=== PATIENT | female | born 1965 ===

== ENCOUNTER 2017-02-07 06:05 | Emergency (ER) | payer BC ==
[2017-02-07 06:16] VITALS: BP 119/69; PULSE 81; RESP 16; TEMP 99.4; O2SAT 100
[2017-02-07] MEDS: Sodium Chloride 0.9% 1,000 ML IV STA (06:33)
--- NOTE | 2017-02-07 06:36 | ED PDOC ---
HPI: Back Time Seen by Provider: 02/07/17 06:18 Chief Complaint (Nursing): Abdominal Pain Chief Complaint (Provider): left sided flank pain History Per: Patient History/Exam Limitations: no limitations Onset/Duration Of Symptoms: Hrs Current Symptoms Are (Timing): Still Present Additional Complaint(s): 51yo female presents to the ED with c/o acute onset left sided flank pain x 3 hours. Patient has never had this pain before. Associated with nausea. Denies vomiting, fever, urinary symptoms. Past Medical History Reviewed: Historical Data, Nursing Documentation, Vital Signs Vital Signs: Last Vital Signs Temp 99.4 F 02/07/17 06:14 Pulse 81 02/07/17 06:14 Resp 16 02/07/17 06:14 BP 119/69 02/07/17 06:14 Pulse Ox 100 02/07/17 06:14 - Medical History PMH: No Chronic Diseases - Surgical History Surgical History: No Surg Hx - Family History Family History: States: No Known Family Hx - Allergies Allergies/Adverse Reactions: Allergies Allergy/AdvReac Type Severity Reaction Status Date / Time No Known Allergies Allergy Unverified 10/09/13 16:39 Review of Systems ROS Statement: Except As Marked, All Systems Reviewed And Found Negative Constitutional: Negative for: Fever Gastrointestinal: Positive for: Nausea. Negative for: Vomiting Genitourinary Female: Negative for: Dysuria, Frequency, Incontinence, Hematuria Musculoskeletal: Positive for: Back Pain (left flank ) Physical Exam - Reviewed Nursing Documentation Reviewed: Yes Vital Signs Reviewed: Yes - Physical Exam Appears: Positive for: Well, No Acute Distress, Uncomfortable Head Exam: Positive for: ATRAUMATIC, NORMAL INSPECTION, NORMOCEPHALIC Skin: Positive for: Normal Color, Warm, Dry Eye Exam: Positive for: Normal appearance, EOMI, PERRL ENT: Positive for: Normal ENT Inspection Neck: Positive for: Normal, Painless ROM, Supple Cardiovascular/Chest: Positive for: Regular Rate, Rhythm. Negative for: Murmur , Tachycardia Respiratory: Positive for: Normal Breath Sounds. Negative for: Wheezing, Respiratory Distress Gastrointestinal/Abdominal: Positive for: Normal Exam, Bowel Sounds, Soft. Negative for: Tenderness Back: Positive for: L CVA Tenderness. Negative for: R CVA Tenderness Extremity: Positive for: Normal ROM. Negative for: Deformity, Swelling Neurologic/Psych: Positive for: Alert, Oriented - Laboratory Results Result Diagrams: 04/12/17 06:30 02/07/17 06:30 - ECG O2 Sat by Pulse Oximetry: 100 Pulse Ox Interpretation: Normal (RA) Medical Decision Making Medical Decision Makin: Impression: kidney stone Plan: CT A/P Labs IVF, Toradol 30mg IVP reassess Patient s/o to Dr. Aquino at [address], labs, re-eval. Scribe Attestation: Documented by Juliocesar Zacarias acting as a scribe for Efe Schulte MD. Provider Scribe Attestation: All medical record entries made by the Scribe were at my direction and personally dictated by me. I have reviewed the chart and agree that the record accurately reflects my personal performance of the history, physical exam, medical decision making, and the department course for this patient. I have also personally directed, reviewed, and agree with the discharge instructions and disposition. Disposition - Clinical Impression Clinical Impression: Abdominal pain - Patient ED Disposition Is Patient to be Admitted: Transfer of Care - Disposition Disposition: Transfer of Care Disposition Time: 07:00 Condition: STABLE Patient Signed Over To: Cole Aquino Handoff Comments: pending CT, labs, re-eval
[2017-02-07 06:41] LABS: BASO # 0.1 K/uL (0.0-0.2); BASO % 1.2 % (0.0-2.0); EOS # 0.1 K/uL (0.0-0.7); EOS % 1.1 % (0.0-4.0); HEMATOCRIT 42.8 % (34.0-47.0); LYMPH # 4.3 K/uL (1.0-4.3); LYMPH % 36.2 % (20.0-40.0); MEAN CELL VOLUME 84.7 fl (81.0-99.0); MEAN CORPUSCULAR HEMOGLOBIN 27.1 pg (27.0-31.0); MEAN PLATELET VOLUME 9.1 fl (7.2-11.7); MONO # 1.1 K/uL (0.0-0.8); MONO % 9.2 % (0.0-10.0); NEUT # 6.2 K/uL (1.8-7.0); NEUT % 52.3 % (50.0-75.0); NRBC % 0.1 % (0.0-0.0); WHITE BLOOD COUNT 11.9 K/uL (4.8-10.8)
[2017-02-07 06:54] LABS: ALB/GLOB RATIO 1.1 (1.0-2.1); ALKALINE PHOSPHATASE 103 U/L (38-126); ALT/SGPT 41 U/L (9-52); AST/SGOT 31 U/L (14-36); BILIRUBIN,TOTAL 0.6 mg/dl (0.2-1.3); BLOOD UREA NITROGEN 15 mg/dl (7-17); CALCIUM 10.7 mg/dL (8.4-10.2); CARBON DIOXIDE 23 mmol/L (22-30); CHLORIDE 105 mmol/L (98-107); GFR AFRICAN-AMERICAN > 60; GLUCOSE,RANDOM 143 mg/dL (65-105); POTASSIUM 3.9 MMOL/L (3.6-5.0); SODIUM 144 mmol/l (132-148); TOTAL PROTEIN 7.8 G/DL (6.3-8.2)
--- NOTE | 2017-02-07 07:14 | ED PDOC ---
- Laboratory Results Result Diagrams: 02/07/17 06:30 02/07/17 06:30 - ECG O2 Sat by Pulse Oximetry: 100 - Progress Re-evaluation Time: 08:49 Condition: Re-examined, Improved Medical Decision Making Medical Decision Making: Time: 0700 Patient signed out by Dr. Schulte pending CT and labs Time: 0850 CT abdomen results reveiwed PROCEDURE: CT Abdomen and Pelvis without intravenous contrast HISTORY: L sided flank pain COMPARISON: None. TECHNIQUE: Technique. Contrast Dose: Radiation dose: Total exam DLP = 1048 mGy-cm. This CT exam was performed using one or more of the following dose reduction techniques: Automated exposure control, adjustment of the mA and/or kV according to patient size, and/or use of iterative reconstruction technique. FINDINGS: LOWER THORAX: Unremarkable. LIVER: Unremarkable. No gross lesion or ductal dilatation. GALLBLADDER AND BILE DUCTS: Unremarkable. PANCREAS: Unremarkable. No gross lesion or ductal dilatation. SPLEEN: Unremarkable. ADRENALS: Unremarkable. No mass. KIDNEYS AND URETERS: A 1 mm nonobstructing central left renal calculus is noted. No hydronephrosis. No gross mass on this non enhanced study is seen. 1 mm calculus near the left ureterovesical junction - likely just having passed into the bladder is noted. Portions of the left mid ureter more proximally appear segmentally top-normal in caliber. No diffuse left ureteral dilatation suggested. Immediately above this left ureteral vesicle junction no immediate dilated left ureter seen. VASCULATURE: Unremarkable. No aortic aneurysm. Bilateral hemipelvic phleboliths BOWEL: Unremarkable. No obstruction. No gross mural thickening. APPENDIX: Unremarkable. Normal appendix. PERITONEUM: Unremarkable. No free fluid. No free air. LYMPH NODES: Unremarkable. No enlarged lymph nodes. BLADDER: Left-sided 1 mm calculus likely recently passed into left bladder near left ureteral vesicle junction as detailed above REPRODUCTIVE: Unremarkable. BONES: No acute fracture. OTHER FINDINGS: None. IMPRESSION: 1 mm (or smaller) left-sided calculus likely recently passed into the bladder now near the left ureterovesical junction. No immediate proximal left ureteral dilatation suggested. Nonobstructing 1 mm left central renal calculus. No left hydronephrosis Scribe Attestation: Documented by Rosa Singh acting as a scribe for Cole Aquino MD MD Scribe Attestation: All medical record entries made by the Scribe were at my direction and personally dictated by me. I have reviewed the chart and agree that the record accurately reflects my personal performance of the history, physical exam, medical decision making, and the department course for this patient. I have also personally directed, reviewed, and agree with the discharge instructions and disposition. Disposition - Clinical Impression Clinical Impression: Abdominal pain, Ureteral calculus, right - POA Present On Arrival: None - Disposition Referrals: Mele Wilson MD [Staff Provider] - Disposition: Routine/Home Disposition Time: 08:51 Condition: GOOD Additional Instructions: Follow up with your PCP in 2-3 days. Prescriptions: Ciprofloxacin HCl [Cipro] 500 mg PO BID #14 tablet Instructions: Kidney Stones (ED)
[2017-02-07 07:39] LABS: RBC URINE 1 /hpf (0-3); URINE BILIRUBIN NEGATIVE (NEGATIVE); URINE BLOOD NEGATIVE (NEGATIVE); URINE COLOR YELLOW (YELLOW); URINE GLUCOSE (UA) NEG (Normal); URINE KETONE NEGATIVE (NEGATIVE); URINE LEUKOCYTE ESTERASE TRACE Leu/uL (Negative); URINE PROTEIN NEGATIVE (NEGATIVE); URINE UROBILINOGEN 0.2-1.0 mg/dL (0.2-1.0); WBC CLUMPS MANY /hpf; WBC URINE 12 /hpf (0-5)
--- NOTE | 2017-02-07 08:35 | CT ---
PROCEDURE: CT Abdomen and Pelvis without intravenous contrast HISTORY: L sided flank pain COMPARISON: None. TECHNIQUE: Technique. Contrast Dose: Radiation dose: Total exam DLP = 1048 mGy-cm. This CT exam was performed using one or more of the following dose reduction techniques: Automated exposure control, adjustment of the mA and/or kV according to patient size, and/or use of iterative reconstruction technique. FINDINGS: LOWER THORAX: Unremarkable. LIVER: Unremarkable. No gross lesion or ductal dilatation. GALLBLADDER AND BILE DUCTS: Unremarkable. PANCREAS: Unremarkable. No gross lesion or ductal dilatation. SPLEEN: Unremarkable. ADRENALS: Unremarkable. No mass. KIDNEYS AND URETERS: A 1 mm nonobstructing central left renal calculus is noted. No hydronephrosis. No gross mass on this non enhanced study is seen. 1 mm calculus near the left ureterovesical junction - likely just having passed into the bladder is noted. Portions of the left mid ureter more proximally appear segmentally top-normal in caliber. No diffuse left ureteral dilatation suggested. Immediately above this left ureteral vesicle junction no immediate dilated left ureter seen. VASCULATURE: Unremarkable. No aortic aneurysm. Bilateral hemipelvic phleboliths BOWEL: Unremarkable. No obstruction. No gross mural thickening. APPENDIX: Unremarkable. Normal appendix. PERITONEUM: Unremarkable. No free fluid. No free air. LYMPH NODES: Unremarkable. No enlarged lymph nodes. BLADDER: Left-sided 1 mm calculus likely recently passed into left bladder near left ureteral vesicle junction as detailed above REPRODUCTIVE: Unremarkable. BONES: No acute fracture. OTHER FINDINGS: None. IMPRESSION: 1 mm (or smaller) left-sided calculus likely recently passed into the bladder now near the left ureterovesical junction. No immediate proximal left ureteral dilatation suggested. Nonobstructing 1 mm left central renal calculus. No left hydronephrosis
== END 2017-02-07 09:05 | disposition home or self-care (01) ==
LOC: H.ER 06:05
DX: N20.1 Calculus of ureter (principal); R10.9 Unspecified abdominal pain; R11.0 Nausea; M54.9 Dorsalgia, unspecified
CPT/HCPCS: 74176; 80053; 81003; 81025; 85025; 96374; 99283; J1885; J7040

== ENCOUNTER 2018-01-17 13:22 | Emergency (ER) | payer BC ==
[2018-01-17 13:30] VITALS: O2SAT 98
[2018-01-17] MEDS ORDERED: Morphine 4 MG/ML VIAL IVP ONE (13:40)
[2018-01-17] MEDS ORDERED: Morphine 4 MG/ML VIAL ONE (13:50)
--- NOTE | 2018-01-17 14:09 | ED PDOC ---
HPI: Back Time Seen by Provider: 01/17/18 13:32 Chief Complaint (Nursing): Back Pain Chief Complaint (Provider): Left Flank Pain History Per: Patient Onset/Duration Of Symptoms: Hrs (2-3), Intermittent Episodes, Sudden Onset Severity: Moderate Previous Symptoms: None, Other (pt has a PMHx that includes renal stones; most recent episode was 8 months prior) Past Medical History Vital Signs: Last Vital Signs Temp 97.8 F 01/17/18 13:27 Pulse 80 01/17/18 13:27 Resp 18 01/17/18 13:27 BP 116/79 01/17/18 13:27 Pulse Ox 98 01/17/18 13:27 - Medical History PMH: HTN, Kidney Stones, Chronic Kidney Disease - Family History Family History: States: No Known Family Hx - Home Medications Home Medications: Ambulatory Orders Medication Instructions Recorded Ciprofloxacin HCl [Cipro] 500 mg PO BID #14 tablet 02/07/17 Tamsulosin HCl [Flomax] 0.4 mg PO DAILY #30 cap.er.24h 01/17/18 - Allergies Allergies/Adverse Reactions: Allergies Allergy/AdvReac Type Severity Reaction Status Date / Time No Known Allergies Allergy Verified 01/17/18 13:25 - Laboratory Results Result Diagrams: 01/17/18 14:04 01/17/18 14:04 - ECG O2 Sat by Pulse Oximetry: 98 Medical Decision Making Medical Decision Making: pain control r/o renal stones CT without contrast CT ABD & Pelvis without Contrast PROCEDURE: CT Abdomen and Pelvis without intravenous contrast HISTORY: r/o renal stones COMPARISON: None. TECHNIQUE: Helical CT of the abdomen and pelvis was performed without oral or intravenous contrast as per referring physician request. Contrast Dose: None Radiation dose: Total exam DLP = 1010.47 mGy-cm. This CT exam was performed using one or more of the following dose reduction techniques: Automated exposure control, adjustment of the mA and/or kV according to patient size, and/or use of iterative reconstruction technique. FINDINGS: LOWER THORAX: Limited bilateral basilar dependent atelectasis identified as well as a small stable hiatal hernia. LIVER: Unremarkable. No gross lesion or ductal dilatation. GALLBLADDER AND BILE DUCTS: Unremarkable. PANCREAS: Unremarkable. No gross lesion or ductal dilatation. SPLEEN: Unremarkable. ADRENALS: Unremarkable. No mass. KIDNEYS AND URETERS: No right hydronephrosis is identified. A sub cm lucency is seen the right kidney upper midpole region laterally which is difficult to characterize due to lack of intravenous contrast and its small size. Left renal parenchyma appears grossly nonfocal with no radiodense intrarenal calculi identified bilaterally. However, there is trace left perinephric reaction and mild left hydronephrosis and hydroureter, apparently due to a 1.5 mm calculus obstructing the left UV junction or possibly expelled into the left urinary bladder base. Urine bladder is completely decompressed and otherwise appears nonfocal. VASCULATURE: Unremarkable. No aortic aneurysm. BOWEL: The stomach is distended with retained fluid and some air. No bowel obstruction is appreciated with nonacute sigmoid diverticular changes again evident. Moderate fecal loading is seen in various large-bowel segments, particularly the right hemicolon. APPENDIX: Unremarkable. Normal appendix. PERITONEUM: Unremarkable. No free fluid. No free air. LYMPH NODES: Unremarkable. No enlarged lymph nodes. BLADDER: Discussed in renal section above. REPRODUCTIVE: Unremarkable. BONES: No acute fracture. OTHER FINDINGS: None. IMPRESSION: Apparent recurrent mild left-sided obstructive uropathy caused by 1.5 mm calculus identified either in the urinary bladder base lumen or at the left UVJ as described above. No residual intrarenal radiodense calculus left kidney with current calculus likely the same 1 at the upper pole left kidney previously shown. None is seen at the right kidney at this time. No right-sided obstructive uropathy. Small lucency seen at the upper midpole right kidney poorly characterized due lack of intravenous contrast and possibly due to its small size. Consider elective follow-up renal ultrasound exam. dx: renal stone (currently passing in [facility]) will discharge with pain medications refer to urology Disposition - Clinical Impression Clinical Impression: Renal stones - Patient ED Disposition Is Patient to be Admitted: No Doctor Will See Patient In The: Office Counseled Patient/Family Regarding: Studies Performed - Disposition Referrals: Riccardo Miller MD [Medical Doctor] - Disposition: Routine/Home Disposition Time: 15:21 Condition: GOOD Prescriptions: Tamsulosin HCl [Flomax] 0.4 mg PO DAILY #30 cap.er.24h Instructions: Kidney Stones in Adults, Flank Pain (DC) Forms: [employer] ([place]ian)
[2018-01-17 14:14] LABS: BASO % 0.6 % (0.0-2.0); EOS # 0.1 K/uL (0.0-0.7); EOS % 1.3 % (0.0-4.0); HEMOGLOBIN 13.9 g/dL (12.0-16.0); LYMPH # 3.4 K/uL (1.0-4.3); LYMPH % 39.4 % (20.0-40.0); MEAN CELL VOLUME 83.9 fl (81.0-99.0); MEAN CORPUSCULAR HEMOGLOBIN 26.8 pg (27.0-31.0); MEAN CORPUSCULAR HGB CONC 31.9 g/dL (33.0-37.0); MONO # 0.8 K/uL (0.0-0.8); MONO % 9.2 % (0.0-10.0); NEUT # 4.2 K/uL (1.8-7.0); NEUT % 49.5 % (50.0-75.0); NRBC % 0.1 % (0.0-0.0); RBC 5.21 Mil/uL (3.80-5.20); RED CELL DISTRIBUTION WIDTH 14.1 % (11.5-14.5); WHITE BLOOD COUNT 8.5 K/uL (4.8-10.8)
[2018-01-17 14:20] LABS: ALB/GLOB RATIO 1.1 (1.0-2.1); ALBUMIN 4.2 g/dL (3.5-5.0); ALT/SGPT 55 U/L (9-52); AST/SGOT 31 U/L (14-36); BLOOD UREA NITROGEN 13 mg/dl (7-17); CALCIUM 10.6 mg/dL (8.4-10.2); GFR AFRICAN-AMERICAN > 60; GFR NON-AFRICAN AMERICAN > 60
[2018-01-17 14:27] LABS: SQUAMOUS EPITHIAL < 1 /hpf (0-5); URINE BILIRUBIN NEGATIVE (NEGATIVE); URINE BLOOD MODERATE (NEGATIVE); URINE CLARITY SLIGHTY-CLOUDY (Clear); URINE COLOR YELLOW (YELLOW); URINE GLUCOSE (UA) NEG (Normal); URINE LEUKOCYTE ESTERASE TRACE Leu/uL (Negative); URINE PROTEIN NEGATIVE (NEGATIVE); URINE UROBILINOGEN 0.2-1.0 mg/dL (0.2-1.0)
--- NOTE | 2018-01-17 14:46 | CT ---
PROCEDURE: CT Abdomen and Pelvis without intravenous contrast HISTORY: r/o renal stones COMPARISON: None. TECHNIQUE: Helical CT of the abdomen and pelvis was performed without oral or intravenous contrast as per referring physician request. Contrast Dose: None Radiation dose: Total exam DLP = 1010.47 mGy-cm. This CT exam was performed using one or more of the following dose reduction techniques: Automated exposure control, adjustment of the mA and/or kV according to patient size, and/or use of iterative reconstruction technique. FINDINGS: LOWER THORAX: Limited bilateral basilar dependent atelectasis identified as well as a small stable hiatal hernia. LIVER: Unremarkable. No gross lesion or ductal dilatation. GALLBLADDER AND BILE DUCTS: Unremarkable. PANCREAS: Unremarkable. No gross lesion or ductal dilatation. SPLEEN: Unremarkable. ADRENALS: Unremarkable. No mass. KIDNEYS AND URETERS: No right hydronephrosis is identified. A sub cm lucency is seen the right kidney upper midpole region laterally which is difficult to characterize due to lack of intravenous contrast and its small size. Left renal parenchyma appears grossly nonfocal with no radiodense intrarenal calculi identified bilaterally. However, there is trace left perinephric reaction and mild left hydronephrosis and hydroureter, apparently due to a 1.5 mm calculus obstructing the left UV junction or possibly expelled into the left urinary bladder base. Urine bladder is completely decompressed and otherwise appears nonfocal. VASCULATURE: Unremarkable. No aortic aneurysm. BOWEL: The stomach is distended with retained fluid and some air. No bowel obstruction is appreciated with nonacute sigmoid diverticular changes again evident. Moderate fecal loading is seen in various large-bowel segments, particularly the right hemicolon. APPENDIX: Unremarkable. Normal appendix. PERITONEUM: Unremarkable. No free fluid. No free air. LYMPH NODES: Unremarkable. No enlarged lymph nodes. BLADDER: Discussed in renal section above. REPRODUCTIVE: Unremarkable. BONES: No acute fracture. OTHER FINDINGS: None. IMPRESSION: Apparent recurrent mild left-sided obstructive uropathy caused by 1.5 mm calculus identified either in the urinary bladder base lumen or at the left UVJ as described above. No residual intrarenal radiodense calculus left kidney with current calculus likely the same 1 at the upper pole left kidney previously shown. None is seen at the right kidney at this time. No right-sided obstructive uropathy. Small lucency seen at the upper midpole right kidney poorly characterized due lack of intravenous contrast and possibly due to its small size. Consider elective follow-up renal ultrasound exam.
[2018-01-17 15:55] VITALS: BP 125/71; PULSE 78; RESP 16; TEMP 98.1
== END 2018-01-17 15:59 | disposition home or self-care (01) ==
LOC: H.ER 13:22
DX: N20.2 Calculus of kidney with calculus of ureter (principal); I12.9 Hypertensive chronic kidney disease with stage 1 through stage 4 chronic kidney disease, or unspecified chronic kidney disease
CPT/HCPCS: 74176; 80053; 81003; 81025; 85025; 96374; 99283; J2270